=== PATIENT | female | born 1990 | race Hispanic/Latino ===

== ENCOUNTER 2020-05-20 08:49 | Outpatient (CLI) | payer BC ==
--- NOTE | 2020-05-20 10:18 | MRI ---
Exam: Cervical spine MRI with and without contrast HISTORY: Bilateral occipital neuralgia. Head and neck pain, x5 years. FINDINGS: Appropriate T1 marrow signal intensity of the cervical vertebra. Cervical spine vertebral body height is maintained. No fracture. No significant STIR hyperintensity to suggest vertebral body edema. Straightening of cervical lordosis is presumed to be positional. No significant STIR hyperintensity t o suggest ligamentous injury. Visualized brain parenchyma, cervicomedullary junction, cervical cord and the upper thoracic cord hav e a normal size and signal intensity. Postcontrast images do not demonstrate any abnormal enhancement with regards to the vertebra, brain p arenchyma and visualized spinal cord. There does not appear to be any abnormal T2 hyperintensity in the cervical cord. No cord expansion. No cord malacia. C2-C3: Adequate disc hydration. No posterior disc abnormality. No significant central canal stenosis or significant neural foraminal narrowing. C3-C4: Adequate disc hydration. No posterior disc abnormality. No significant central canal stenosis or significant neural foraminal narrowing. C4-C5: Adequate disc hydration. No posterior disc abnormality. No significant central canal stenosis or significant neural foraminal narrowing. C5-C6: Adequate disc hydration. Broad-based disc bulge minimally flattens the thecal sac. No signific ant central canal stenosis or significant neural foraminal narrowing. C6-C7: Adequate disc hydration. Broad-based disc bulge minimally flattens the thecal sac. No signific ant central canal stenosis or significant neural foraminal narrowing. C7-T1: Broad-based disc bulge with a central disc herniation. No significant central canal stenosis o r significant neural foraminal narrowing. IMPRESSION: 1. No fracture. 2. No cord signal abnormality. 3. No significant central canal stenosis or significant neural foraminal narrowing throughout the cer vical spine. Transcribed Date/Time: 05/20/2020 11:30 AM
[2020-05-20] MEDS ORDERED: Magnevist 469MG/ML 20 ML VIAL ONE (11:04)
== END 2020-05-20 08:50 | disposition home or self-care (01) ==
LOC: BICMRI 08:49
PROVIDERS: ATTEND Neurological Surgery
DX: M54.81 Occipital neuralgia (principal)
CPT/HCPCS: 72156; A9579

== ENCOUNTER 2023-03-24 06:35 | Day surgery (SDC) | payer BC ==
[2023-03-15 10:38] VITALS: BMI 28.1
[2023-03-15 13:31] LABS: Hemoglobin 14.4 g/dL (12.0-15.5); Mean Corpuscular HGB CONC 33.9 g/dL (32.0-36.0); Mean Corpuscular Hemoglobin 30.3 pg (27.0-33.0); Mean Corpuscular Volume 89.5 fl (81.6-98.3); Mean Platelet Volume 10.3 fl (7.4-10.4); Platelet Count 240 10x3/uL (150-450); RBC Distribution Width 12.2 % (11.5-14.5); Red Blood Cell (RBC) Count 4.75 10x6/uL (3.90-5.03); White Blood Cell (WBC) Count 4.5 10x3/uL (3.5-10.5)
[2023-03-15 14:09] LABS: INR-International Normal Ratio 0.9; Prothrombin Time 10.2 sec (9.5-12.1)
[2023-03-15 14:12] LABS: Anion Gap 16 mmol/L (10-20); BUN (Urea Nitrogen) 13 mg/dL (7.0-18.7); Calc. Creatinine Clearance 108 mL/min (70-130); Calcium 9.5 mg/dL (7.8-10.44); Carbon Dioxide 26 mmol/L (22-29); Chloride 103 mmol/L (98-107); Estimated GFR 81; Glucose 84 mg/dL (70-105); Potassium 3.7 mmol/L (3.5-5.1); Sodium 141 mmol/L (136-145)
[2023-03-24] MEDS ORDERED: Heparin 10,000 UNITS/ 10 ML VIAL ONE (06:38)
[2023-03-24] MEDS ORDERED: Heparin 25,000 units/D5W 500 ML ONE (06:38)
[2023-03-24] MEDS ORDERED: Lidocaine 1% (PF) 30 ML VIAL ONE (07:10)
[2023-03-24] MEDS ORDERED: Isoproterenol 0.2 MG/1 ML AMP ONE (08:10)
[2023-03-24] MEDS ORDERED: Propofol 1,000 MG/100 ML VIAL IV ONE (08:14)
[2023-03-24] MEDS ORDERED: Meperidine HCl/PF 25 MG/ML VIAL ONE (11:58)
== END 2023-03-24 12:55 | disposition home or self-care (01) ==
LOC: SDC 06:35
PROVIDERS: ATTEND Internal Medicine Cardiovascular Disease
DX: I47.1 Supraventricular tachycardia (principal); I95.9 Hypotension, unspecified; Z79.82 Long term (current) use of aspirin; Z79.899 Other long term (current) drug therapy; Z90.710 Acquired absence of both cervix and uterus
CPT/HCPCS: 80048; 84443; 85027; 85610; 93005; 93653; C1730; C1760; C1769; C1894; J1644; J2001; J2175; J2704

== ENCOUNTER 2023-08-02 13:47 | Outpatient (CLI) | payer BC ==
[2023-08-02 15:07] LABS: Hematocrit 38.6 % (34.9-44.5)
== END 2023-08-02 13:48 | disposition home or self-care (01) ==
LOC: LABBT 13:47
PROVIDERS: ATTEND Otolaryngology Plastic Surgery within the Head & Neck
DX: Z01.812 Encounter for preprocedural laboratory examination (principal); J35.3 Hypertrophy of tonsils with hypertrophy of adenoids; J35.01 Chronic tonsillitis; J34.2 Deviated nasal septum; J34.3 Hypertrophy of nasal turbinates
CPT/HCPCS: 85014

== ENCOUNTER 2023-08-03 08:00 | Day surgery (SDC) | payer BC ==
[2023-08-02 14:34] VITALS: BMI 29.6
[2023-08-03] MEDS ORDERED: Oxymetazoline HCl 0.05% (30 ML BOT) ONE ×2 (08:41→08:46)
[2023-08-03] MEDS ORDERED: EPINEPHrine 1 MG/ML VIAL ONE (08:45)
[2023-08-03] MEDS ORDERED: Lidocaine 1% (PF) 30 ML VIAL ONE (08:46)
[2023-08-03] MEDS ORDERED: Ferric Subsulfate 8 ML TOPICAL SOLN ONE (08:46)
[2023-08-03] MEDS ORDERED: PROPOFOL 20 ML ONE (08:52)
[2023-08-03] MEDS ORDERED: fentaNYL PF 100 MCG/2 ML SYRINGE ONE (08:52)
[2023-08-03] MEDS ORDERED: Lidocaine 1% PF 5 ML VIAL ONE ×2 (08:52→09:12)
[2023-08-03] MEDS ORDERED: Midazolam HCl 2 mg/2 ml Vial ONE (09:11)
[2023-08-03] MEDS ORDERED: Rocuronium Bromide 10 MG/ML (10ML VIAL) ONE (09:12)
[2023-08-03] MEDS ORDERED: Dexamethasone 20 MG/5 ML VIAL ONE (09:12)
[2023-08-03] MEDS ORDERED: Ondansetron PF 4 MG/2 ML Vial ONE (09:12)
[2023-08-03] MEDS ORDERED: PROPOFOL 200 MG/20 ML VIAL ONE (09:12)
[2023-08-03] MEDS ORDERED: methylPREDNISolone Acetate 40 mg/ml Vial ONE (09:21)
[2023-08-03] MEDS ORDERED: Dexamethasone 4 mg/ml Vial ONE (09:27)
[2023-08-03] MEDS ORDERED: fentaNYL 50 mcg/mL 1 mL Vial ONE ×2 (10:17→10:29)
[2023-08-03] MEDS ORDERED: HYDROmorphone 0.5 MG/0.5 ML SYRINGE ONE (11:12)
[2023-08-03] MEDS ORDERED: Hydrocodone-Acetamin 15 ML UDCUP ONE (12:05)
== END 2023-08-03 12:45 | disposition home or self-care (01) ==
LOC: SDC 08:00
PROVIDERS: ATTEND Otolaryngology Plastic Surgery within the Head & Neck
PROC: 09BM0ZZ Excision of Nasal Septum, Open Approach (ICD-10-PCS; principal; 2023-08-03)
PROC: 09BQ8ZZ Excision of Right Maxillary Sinus, Via Natural or Artificial Opening Endoscopic (ICD-10-PCS; principal; 2023-08-03)
PROC: 09BU8ZZ Excision of Right Ethmoid Sinus, Via Natural or Artificial Opening Endoscopic (ICD-10-PCS; principal; 2023-08-03)
PROC: 09BR8ZZ Excision of Left Maxillary Sinus, Via Natural or Artificial Opening Endoscopic (ICD-10-PCS; principal; 2023-08-03)
PROC: 09BV8ZZ Excision of Left Ethmoid Sinus, Via Natural or Artificial Opening Endoscopic (ICD-10-PCS; principal; 2023-08-03)
PROC: 09BL8ZZ Excision of Nasal Turbinate, Via Natural or Artificial Opening Endoscopic (ICD-10-PCS; principal; 2023-08-03)
PROC: 0CBPXZZ Excision of Tonsils, External Approach (ICD-10-PCS; principal; 2023-08-03)
PROC: 0CBQ0ZZ Excision of Adenoids, Open Approach (ICD-10-PCS; principal; 2023-08-03)
DX: J35.01 Chronic tonsillitis (principal); J35.3 Hypertrophy of tonsils with hypertrophy of adenoids; J34.2 Deviated nasal septum; J34.3 Hypertrophy of nasal turbinates; J32.9 Chronic sinusitis, unspecified
CPT/HCPCS: 88304; J0171; J1030; J1100; J1170; J2001; J2250; J2405; J2704; J3010

== ENCOUNTER 2024-08-09 10:54 | Day surgery (SDC) | payer BC ==
[2024-08-08 11:24] VITALS: BMI 23.5
[2024-08-09] MEDS ORDERED: fentaNYL PF 100 MCG/2 ML SYRINGE ONE (12:53)
[2024-08-09] MEDS ORDERED: PROPOFOL 20 ML ONE ×3 (12:54→13:21)
== END 2024-08-09 14:40 | disposition home or self-care (01) ==
LOC: SDC 10:54
PROVIDERS: ATTEND Internal Medicine Gastroenterology
PROC: 0DJ08ZZ Inspection of Upper Intestinal Tract, Via Natural or Artificial Opening Endoscopic (ICD-10-PCS; principal; 2024-08-09)
PROC: 0DB38ZX Excision of Lower Esophagus, Via Natural or Artificial Opening Endoscopic, Diagnostic (ICD-10-PCS; principal; 2024-08-09)
PROC: 0D753ZZ Dilation of Esophagus, Percutaneous Approach (ICD-10-PCS; principal; 2024-08-09)
DX: D12.8 Benign neoplasm of rectum (principal); K64.4 Residual hemorrhoidal skin tags; K64.8 Other hemorrhoids; R13.19 Other dysphagia; K44.9 Diaphragmatic hernia without obstruction or gangrene; K58.9 Irritable bowel syndrome, unspecified; K59.09 Other constipation; N80.9 Endometriosis, unspecified; R19.7 Diarrhea, unspecified; M32.9 Systemic lupus erythematosus, unspecified; I47.10 Supraventricular tachycardia, unspecified; G90.A Postural orthostatic tachycardia syndrome [POTS]; G47.30 Sleep apnea, unspecified; E28.2 Polycystic ovarian syndrome; Z87.59 Personal history of other complications of pregnancy, childbirth and the puerperium; Z98.51 Tubal ligation status; Z90.710 Acquired absence of both cervix and uterus; Z79.899 Other long term (current) drug therapy
CPT/HCPCS: 88305; J2704